=== PATIENT | male | born 1965 | race Caucasian/White ===

== ENCOUNTER 2020-10-13 23:30 | Emergency (ER) | payer OTHER, BC ==
[~2020-10-13] VITALS: Ht 188 cm; Wt 75.0 kg
[2020-10-14 00:30] VITALS: BP 136/72
== END 2020-10-14 00:52 | disposition home or self-care (01) | DRG 552 ==
LOC: ED 23:30
DX: S16.1XXA Strain of muscle, fascia and tendon at neck level, initial encounter (principal); V49.40XA Driver injured in collision with unspecified motor vehicles in traffic accident, initial encounter